=== PATIENT | female | born 1965 | race African-American/Black ===

== ENCOUNTER 2018-06-01 18:08 | Emergency (ER) | payer OTHER ==
[2018-06-01 18:28] VITALS: BP 141/83; PULSE 83; TEMP 98.3; BMI 24.4
--- NOTE | 2018-06-01 19:26 | PDOC ---
History of Present Illness - General Chief Complaint: Cold Symptoms Stated Complaint: NUMBNESS IN RT HAND, COUGHING, FEVER Time Seen by Provider: 06/01/18 18:49 History Source: Patient Exam Limitations: No Limitations - History of Present Illness Initial Comments: 06/01/18 19:32 Came with grandson with similar complaints of congestion, ear crackling, moist cough is nonproductive. Granddaughter was diagnosed with influenza last week and patient states her symptoms have been almost as long. Denies current fever, denies purulent drainage from nose, has a moist cough but is a many year pack history smoker. Has been using [id number] medications for some relief. Also suffers from asthma but has run out of her albuterol nebulizing medications. Did not attempt to speak to private physician. Timing/Duration: reports: constant, intermittent, week Severity: reports: mild Associated Symptoms: reports: cough, headache, nasal congestion, nasal drainage , sore throat (postnasal drainage). denies: wheezing Past History - Travel Traveled outside of the country in the last 30 days: No Close contact w/someone who was outside of country & ill: No - Past Medical History Allergies/Adverse Reactions: Allergies Allergy/AdvReac Type Severity Reaction Status Date / Time No Known Allergies Allergy Verified 06/01/18 18:21 Home Medications: Ambulatory Orders Alprazolam [Xanax] 0.5 mg PO ASDIR 03/28/16 Clonidine HCl [Catapres] 0.2 mg PO DAILY 03/28/16 Famotidine [Pepcid] 20 mg PO DAILY #14 tablet 03/28/16 Metoprolol Tartrate [Lopressor -] 50 mg PO DAILY 03/28/16 Albuterol 0.083% Nebulizer Yaritza [Ventolin 0.083% Nebulizer Soln -] 1 neb NEB Q4H PRN #30 vial 06/01/18 Benzonatate [Tessalon Pearls -] 100 mg PO TID #21 capsule 06/01/18 Anemia: No Asthma: Yes Cancer: No Cardiac Disorders: No CVA: No COPD: No CHF: No Dementia: No Diabetes: No GI Disorders: Yes (REFLUX, BLOOD IN STOOL, PEPTIC ULCER) Disorders: No HTN: Yes Hypercholesterolemia: No Liver Disease: No Seizures: No Thyroid Disease: Yes (hypo) - Surgical History Abdominal Surgery: No Appendectomy: No Cardiac Surgery: No Cholecystectomy: No Lung Surgery: No Neurologic Surgery: No Orthopedic Surgery: No - Suicide/Smoking/Psychosocial Hx Smoking History: Current some day smoker Have you smoked in the past 12 months: Yes Number of Cigarettes Smoked Daily: 10 Information on smoking cessation initiated: No 'Breaking Loose' booklet given: 05/05/13 Hx Alcohol Use: No Drug/Substance Use Hx: No Substance Use Type: None Review of Systems - Review of Systems Able to Perform ROS?: Yes Is the patient limited Upper Sorbian proficient: Yes Constitutional: Yes: Symptoms Reported, See HPI, Malaise HEENTM: Yes: Symptoms Reported, See HPI, Ear Pain, Nose Pain, Nose Congestion Respiratory: Yes: Symptoms reported, See HPI, Cough. No: Wheezing Integumentary: No: Symptoms Reported Neurological: Yes: Symptoms reported, See HPI, Headache (primarily frontal) All Other Systems: Reviewed and Negative *Physical Exam - Vital Signs Last Vital Signs Temp Pulse Resp BP Pulse Ox 98.3 F 83 20 141/83 96 06/01/18 18:26 06/01/18 18:26 06/01/18 18:26 06/01/18 18:26 06/01/18 18:26 - Physical Exam General Appearance: Yes: Nourished, Appropriately Dressed, Mild Distress HEENT: positive: MADDIE, TMs Normal (congested but landmarks easily visualized), Pharyngeal Erythema (with white posterior sinus drainage noted, no swelling exudate noted), Rhinorrhea, Sinus Tenderness Neck: positive: Supple (clear), Lymphadenopathy (R), Lymphadenopathy (L) Respiratory/Chest: positive: Lungs Clear. negative: Decreased Breath Sounds, Crackles, Wheezing Gastrointestinal/Abdominal: positive: Normal Bowel Sounds, Soft. negative: Tender Musculoskeletal: positive: Normal Inspection. negative: Vertebral Tenderness Extremity: positive: Normal Capillary Refill, Normal Inspection Integumentary: positive: Dry, Warm, Pale Neurologic: positive: systems support officer II-XII NML intact, Fully Oriented, Alert, Normal Mood/ Affect, Normal Response, Motor Strength 5/5 Moderate Sedation - Procedure Monitoring Vital Signs: Procedure Monitoring Vital Signs Temperature 98.3 F 06/01/18 18:26 Pulse Rate 83 06/01/18 18:26 Respiratory Rate 20 06/01/18 18:26 Blood Pressure 141/83 06/01/18 18:26 O2 Sat by Pulse Oximetry (%) 96 06/01/18 18:26 Progress Note - Progress Note Progress Note: Upper respiratory infection, probable viral will treat conservatively *DC/Admit/Observation/Transfer Diagnosis at time of Disposition: Upper respiratory infection, viral - Discharge Dispostion Disposition: HOME Condition at time of disposition: Stable Decision to Admit order: No - Prescriptions Prescriptions: Albuterol 0.083% Nebulizer Yaritza [Ventolin 0.083% Nebulizer Soln -] 1 neb NEB Q4H PRN #30 vial PRN Reason: Cough Benzonatate [Tessalon Pearls -] 100 mg PO TID #21 capsule - Referrals - Patient Instructions Printed Discharge Instructions: DI for Viral Upper Respiratory Infection -- Adult Additional Instructions: Rest, drink lots of fluids: Teas, water, soups, Pedialyte Saltwater gargles Steamy showers/seem to face break up mucus Avoid contact with others until fevers and cough resolved Lots of handwashing and good hygiene Continue [id number] medications for symptomatic relief Tylenol or Motrin for fever and pain May use albuterol nebulizers for wheezing and cough May use Tessalon Perles 1 tablet every 8 hours for severe cough Followup with private physician in one to 2 days as needed Return to emergency department for worsened symptoms, fevers, dehydration - Post Discharge Activity Forms/Work/School Notes: Back to Work
== END 2018-06-01 19:36 | disposition home or self-care (01) ==
LOC: JERFT 18:08
DX: J06.9 Acute upper respiratory infection, unspecified (principal); B97.89 Other viral agents as the cause of diseases classified elsewhere
CPT/HCPCS: 99281-25

== ENCOUNTER 2018-06-17 12:52 | Emergency (ER) | payer OTHER ==
[2018-06-17 13:06] VITALS: TEMP 98.7; BMI 23.9
[2018-06-17] MEDS ORDERED: LOSARTAN 50MG/HCTZ 12.5MG 1 TAB (FP) PO ONE (14:21)
[2018-06-17] MEDS ORDERED: cloNIDine HCL 0.1 MG TABLET PO ONE (14:21)
--- NOTE | 2018-06-17 14:31 | PDOC ---
History of Present Illness - History of Present Illness Initial Comments: The patient is a 52 year old female (current smoker- 5 cigarettes per day), with a significant PMH of HTN, asthma, acid reflux, peptic ulcer, and hypothyroidism, who presents to the emergency department today complaining of left ear pain and elevated blood pressure for one day. Patient notes she began experiencing ear pain upon waking up this morning. Although she did not measure her blood pressure, she felt as if it was elevated and thought it was the cause of her ear pain. Patient denies taking daily medications (Losartan and Clonidine) this morning because she thought they would be administered at the ED today. Patient reports having a chronic cough at baseline secondary to her asthma, which she notes is well controlled and only uses her inhaler as needed. 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 The patient denies chest pain, shortness of breath, headache and dizziness. Denies fever, chills, nausea, vomit, diarrhea and constipation. Denies dysuria, frequency, urgency and hematuria. Allergies: NKA Past surgical history: None reported Social history: Current everyday smoker (5 cigarettes per day) PCP: Dr. Benitez Hooper 06/17/18 14:55 <Karishma Lemon - Last Filed: 06/17/18 14:55> <Meeta Camejo - Last Filed: 06/17/18 15:14> - General Chief Complaint: Blood Pressure Problem Stated Complaint: HTN, RT ARM NUMBNESS, LT EAR PAIN Time Seen by Provider: 06/17/18 13:55 Past History <Karishma Lemon - Last Filed: 06/17/18 14:55> - Past Medical History Anemia: No Asthma: Yes Cancer: No Cardiac Disorders: No CVA: No COPD: No CHF: No Dementia: No Diabetes: No GI Disorders: Yes (REFLUX, BLOOD IN STOOL, PEPTIC ULCER) Disorders: No HTN: Yes Hypercholesterolemia: No Liver Disease: No Seizures: No Thyroid Disease: Yes (hypo) - Surgical History Abdominal Surgery: No Appendectomy: No Cardiac Surgery: No Cholecystectomy: No Lung Surgery: No Neurologic Surgery: No Orthopedic Surgery: No - Suicide/Smoking/Psychosocial Hx Smoking History: Current every day smoker Have you smoked in the past 12 months: Yes Number of Cigarettes Smoked Daily: 5 Information on smoking cessation initiated: Yes 'Breaking Loose' booklet given: 05/05/13 Hx Alcohol Use: No Drug/Substance Use Hx: No Substance Use Type: None <Meeta Camejo - Last Filed: 06/17/18 15:14> - Past Medical History Allergies/Adverse Reactions: Allergies Allergy/AdvReac Type Severity Reaction Status Date / Time No Known Allergies Allergy Verified 06/17/18 13:06 Home Medications: Ambulatory Orders Alprazolam [Xanax] 0.5 mg PO ASDIR 03/28/16 Clonidine HCl [Catapres] 0.2 mg PO DAILY 03/28/16 Famotidine [Pepcid] 20 mg PO DAILY #14 tablet 03/28/16 Metoprolol Tartrate [Lopressor -] 50 mg PO DAILY 03/28/16 Albuterol 0.083% Nebulizer Yaritza [Ventolin 0.083% Nebulizer Soln -] 1 neb NEB Q4H PRN #30 vial 06/01/18 Benzonatate [Tessalon Perle -] 100 mg PO TID #21 capsule 06/01/18 Neomycin/Polymyxn/Hc [Cortisporin *Otic Solution*-] 4 drop AU Q6HPO 10 Days #1 bottle 06/17/18 Review of Systems - Review of Systems Comments:: GENERAL/CONSTITUTIONAL: +Elevated blood pressure. No fever or chills. No weakness. HEAD, EYES, EARS, NOSE AND THROAT: +Left ear pain. No change in vision. No ear discharge. No sore throat. CARDIOVASCULAR: No chest pain or shortness of breath. RESPIRATORY: +Chronic cough at baseline secondary to asthma. No wheezing or hemoptysis. GASTROINTESTINAL: No nausea, vomiting, diarrhea or constipation. GENITOURINARY: No dysuria, frequency, or change in urination. MUSCULOSKELETAL: No joint or muscle swelling or pain. No neck or back pain. SKIN: No rash NEUROLOGIC: +Right upper extremity tingling. No headache, vertigo, loss of consciousness, or change in strength. ENDOCRINE: No increased thirst. No abnormal weight change. HEMATOLOGIC/LYMPHATIC: No anemia, easy bleeding, or history of blood clots. ALLERGIC/IMMUNOLOGIC: No hives or skin allergy. 06/17/18 14:55 <Karishma Lemon - Last Filed: 06/17/18 14:55> *Physical Exam - Vital Signs Last Vital Signs Temp Pulse Resp BP Pulse Ox 98.7 F 77 19 183/90 H 100 06/17/18 13:03 06/17/18 13:03 06/17/18 13:03 06/17/18 13:03 06/17/18 13:03 - Physical Exam Comments: GENERAL: Awake, alert, and fully oriented, in no acute distress HEAD: No signs of trauma EYES: PERRLA, EOMI, sclera anicteric, conjunctiva clear ENT: +Left ear pain with moving auricle. +Mild external ear erythema. +Canal erythema. Left and right tympanic membrane clear. Hearing grossly normal, nares patent, oropharynx clear without exudates. Moist mucosa NECK: Normal ROM, supple, no lymphadenopathy, JVD, or masses LUNGS: +Expiratory wheezing bilaterally. +Left lung crackles. Breath sounds equal, clear to auscultation bilaterally. HEART: Regular rate and rhythm, normal S1 and S2, no murmurs, rubs or gallops ABDOMEN: Soft, nontender, normoactive bowel sounds. No guarding, no rebound. No masses EXTREMITIES: Normal range of motion, no edema. No clubbing or cyanosis. No cords, erythema, or tenderness NEUROLOGICAL: Cranial nerves II through XII grossly intact. Normal speech, normal gait SKIN: Warm, Dry, normal turgor, no rashes or lesions noted. 06/17/18 14:56 <Karishma Lemon - Last Filed: 06/17/18 14:55> - Vital Signs Last Vital Signs Temp Pulse Resp BP Pulse Ox 98.7 F 77 19 183/90 H 100 06/17/18 13:03 06/17/18 13:03 06/17/18 13:03 06/17/18 13:03 06/17/18 13:03 <Meeta Camejo - Last Filed: 06/17/18 15:14> Moderate Sedation - Procedure Monitoring Vital Signs: Procedure Monitoring Vital Signs Temperature 98.7 F 06/17/18 13:03 Pulse Rate 77 06/17/18 13:03 Respiratory Rate 19 06/17/18 13:03 Blood Pressure 183/90 H 06/17/18 13:03 O2 Sat by Pulse Oximetry (%) 100 06/17/18 13:03 <Karisham Lemon - Last Filed: 06/17/18 14:55> - Procedure Monitoring Vital Signs: Procedure Monitoring Vital Signs Temperature 98.7 F 06/17/18 13:03 Pulse Rate 77 06/17/18 13:03 Respiratory Rate 19 06/17/18 13:03 Blood Pressure 183/90 H 06/17/18 13:03 O2 Sat by Pulse Oximetry (%) 100 06/17/18 13:03 <Meeta Camejo - Last Filed: 06/17/18 15:14> Heart Score/ECG Review #1 General ECG Interpretation: Sinus Rhythm, Normal Rate (70), Normal Intervals, No acute ischemic changes <Meeta Camejo - Last Filed: 06/17/18 15:14> ED Treatment Course - LABORATORY CBC & Chemistry Diagram: 06/17/18 14:49 06/17/18 14:49 <Karishma Lemon - Last Filed: 06/17/18 14:55> - LABORATORY CBC & Chemistry Diagram: 06/17/18 14:49 06/17/18 14:49 - RADIOLOGY Radiology Studies Ordered: Category Date Time Status CHEST PA & LAT [RAD] Stat Radiology 06/17/18 14:24 Ordered <NellMeeta - Last Filed: 06/17/18 15:14> Medical Decision Making - Medical Decision Making 06/17/18 14:24 52 yo F here with h/o tobacco use, left ear pain. states has been having ear pain since she woke up . was worried it was her bp. so did not take her meds bc thought they would give her her meds here. denbryon cp no sob . chronic cough. no f/c also has intermittent right arm tingling. for last week. no neck or back pain. does work a lot with her grandson who is autistic and is teaching him sign language. no leg swelling. 06/17/18 14:26 on exam pt left ear with pain moving auricle. ext ear mild erythema. canal erythematous. TM clear. right tm clear. cardiac exam rrr no mrg . lungs with exp wheezes bilat, left lung with cracles. plan cxr r/o pna. ekg lab r/o end organ damage. will treat for otitis externa wtih corticosporin otic. given home bp meds. <Meeta Camejo - Last Filed: 06/17/18 15:14> *DC/Admit/Observation/Transfer - Attestations Scribe Attestion: Documentation prepared by KIRILL Law, acting as chief medical director for Meeta Camejo MD. 06/17/18 14:56 <Karishma Lemon - Last Filed: 06/17/18 14:55> - Discharge Dispostion Decision to Admit order: No <Meeta Camejo - Last Filed: 06/17/18 15:14> Diagnosis at time of Disposition: Hypertension, Otitis externa - Discharge Dispostion Disposition: HOME - Prescriptions Prescriptions: Neomycin/Polymyxn/Hc [Cortisporin *Otic Solution*-] 4 drop AU Q6HPO 10 Days #1 bottle - Referrals Referrals: Benitez Hooper PA [Primary Care Provider] - - Patient Instructions Printed Discharge Instructions: Otitis Externa, How to Monitor Your Blood Pressure at Home Additional Instructions: your have infection in your left ear. you should use corticosporin otic drops 5 drops in the left ear every 6 hrs for 10 days. you should continue to take your blood pressure medication. return for any chest pain, shortness of breath or any fevers. you need to have your blood pressure repeated in 3 days with your primary doctor. call to schedule an appointment. you can also follow up with an ear nose and throat doctor. see referral for phone number. return for any problems or concerns. you need to quit smoking. discuss with you primary provider for options.
[2018-06-17] MEDS ORDERED: LOSARTAN POTASSIUM 50 MG TABLET (FP) ONE (14:43)
[2018-06-17] MEDS ORDERED: HYDROCHLOROTHIAZIDE 25 MG TABLET (FP) ONE (14:43)
[2018-06-17] MEDS ORDERED: cloNIDine HCL 0.1 MG TABLET ONE (14:43)
[2018-06-17 14:58] VITALS: BP 148/86; PULSE 72
[2018-06-17 15:02] LABS: BASO % 1.1 % (0-2.0); EOS % 1.8 % (0-4.5); HEMATOCRIT 38.7 % (32.4-45.2); HEMOGLOBIN 13.3 GM/dL (10.7-15.3); LYMPH % 52.9 % (8-40); MCH 32.4 pg (25.7-33.7); MCHC 34.5 g/dl (32.0-36.0); MEAN CELL VOLUME 93.9 fl (80-96); MEAN PLT VOLUME 8.9 fl (7.5-11.1); MONO % 7.8 % (3.8-10.2); NEUT % 36.4 % (42.8-82.8); PLATELET COUNT 220 K/MM3 (134-434); RBC 4.12 M/mm3 (3.60-5.2); WHITE BLOOD COUNT 7.7 K/mm3 (4.0-10.0)
[2018-06-17 15:33] LABS: ALBUMIN 3.9 g/dl (3.4-5.0); ALK PHOS 99 U/L (45-117); ANION GAP 4 MMOL/L (8-16); BILIRUBIN,TOTAL 0.3 mg/dL (0.2-1); BLOOD UREA NITROGEN 8 mg/dL (7-18); CALCIUM 8.9 mg/dL (8.5-10.1); CHLORIDE 104 mmol/L (98-107); CO2 30 mmol/L (21-32); CREATININE 0.6 mg/dL (0.55-1.3); GLUCOSE,RANDOM 82 mg/dL (74-106); POTASSIUM 4.2 mmol/L (3.5-5.1); SGOT/AST 17 U/L (15-37); SGPT/ALT 22 U/L (13-61); SODIUM 138 mmol/L (136-145); TOT PROT 7.3 g/dl (6.4-8.2)
--- NOTE | 2018-06-17 15:49 | EKG ---
Test Reason : Blood Pressure : / mmHG Vent. Rate : 070 BPM Atrial Rate : 070 BPM P-R Int : 168 ms QRS Dur : 084 ms QT Int : 408 ms P-R-T Axes : 043 059 047 degrees QTc Int : 440 ms NORMAL SINUS RHYTHM NORMAL ECG WHEN COMPARED WITH ECG OF 28-MAR-2016 12:50, NO SIGNIFICANT CHANGE WAS FOUND Confirmed by ANNIA HAYWOOD MD ([id number]) on 06/17/2018 3:49:20 PM Referred By: Confirmed By:ANNIA HAYWOOD MD
[2018-06-17] MEDS ORDERED: NEOMYCIN/POLYMYXN/HC OTIC SOLUTION 10 ML BOTTLE AU SCH (18:00)
== END 2018-06-17 15:07 | disposition home or self-care (01) ==
LOC: JER 12:52 → SUPCPDRO 12:52 → JER 15:07
DX: I10 Essential (primary) hypertension (principal); H60.502 Unspecified acute noninfective otitis externa, left ear; J45.909 Unspecified asthma, uncomplicated; K21.9 Gastro-esophageal reflux disease without esophagitis; E03.9 Hypothyroidism, unspecified; F17.210 Nicotine dependence, cigarettes, uncomplicated
CPT/HCPCS: 36415; 71046-TC-FY; 80053; 84484; 85025; 93005; 93010; 99283-25; J0735

== ENCOUNTER 2020-09-27 11:37 | Inpatient (IN) | payer OTHER ==
[2020-09-27 12:40] VITALS: BMI 22.3
[2020-09-27] MEDS ORDERED: ALBUTEROL SO4 HFA INHALER IH PRN (14:16)
[2020-09-27] MEDS ORDERED: MAG HYDROX/AL HYDROX/SIMETH 30 ML UNIT-DOSE CUP PO PRN (14:18)
[2020-09-27] MEDS ORDERED: ONDANSETRON *ODT* 4 MG TABLET SL PRN (14:18)
[2020-09-27] MEDS ORDERED: cloNIDine HCL 0.1 MG TABLET PO PRN (14:18)
[2020-09-27] MEDS ORDERED: METHADONE HCL 10 MG TABLET (FOR DETOX USE ONLY) PO ONE (14:18)
[2020-09-27] MEDS ORDERED: NICOTINE POLACRILEX 2 MG GUM BUC PRN (14:18)
[2020-09-27] MEDS ORDERED: BISMUTH SUBSALICYLATE 262 MG/15 ML BTL PO PRN (14:18)
[2020-09-27] MEDS ORDERED: ACETAMINOPHEN 325 MG TABLET (FP) PO PRN (14:18)
[2020-09-27] MEDS ORDERED: MENTHOL/PHENOL 1 EACH UD MM PRN (14:18)
[2020-09-27] MEDS ORDERED: MAGNESIUM CITRATE 300 ML BOTTLE PO PRN (14:18)
[2020-09-27] MEDS ORDERED: PATIENT'S OWN MEDICATION (NON-FORMULARY) (Omeprazole Magnesium [Prilosec Otc] 20 MG Tablet PO SCH (14:30)
[2020-09-27] MEDS ORDERED: METHIMAZOLE 10 MG TABLET PO SCH (14:30)
[2020-09-27] MEDS: ATORVASTATIN CA 20 MG TABLET (FP) PO SCH (15:32)
[2020-09-27] MEDS: PANTOPRAZOLE 20 MG TABLET PO SCH (15:32)
[2020-09-27] MEDS: amLODIPine BESYLATE 5 MG TABLET (FP) PO SCH (15:32)
[2020-09-27] MEDS: PRENATAL VITAMINS W/ FOLIC ACID TABLET (FP) PO SCH (15:32)
[2020-09-27] MEDS: NICOTINE 14 MG/24 HOURS TOPICAL PATCH TD SCH (15:34)
[2020-09-27 17:26] LABS: HIV INTERPRETATION NEGATIVE (NEGATIVE)
[2020-09-27] MEDS: diazePAM 5 MG TABLET PO SCH ×2 (18:17→22:23)
[2020-09-27] MEDS: hydrOXYzine PAMOATE 25 MG CAPSULE (FP) PO SCH ×2 (18:17→22:23)
[2020-09-27] MEDS: IBUPROFEN 400 MG TABLET (FP) PO PRN (19:51)
[2020-09-27] MEDS: THIAMINE HCL 100 MG TABLET (FP) PO SCH (22:23)
[2020-09-27] MEDS: MELATONIN 5 MG TABLETS PO SCH (22:24)
[2020-09-27] MEDS: METHOCARBAMOL 500 MG TABLET PO PRN (22:26)
[2020-09-28] MEDS: diazePAM 5 MG TABLET PO SCH ×4 (06:11→22:25)
[2020-09-28] MEDS: hydrOXYzine PAMOATE 25 MG CAPSULE (FP) PO SCH ×5 (06:12→22:25)
[2020-09-28] MEDS: IBUPROFEN 400 MG TABLET (FP) PO PRN ×2 (07:06→13:47)
[2020-09-28] MEDS ORDERED: METHADONE HCL 10 MG TABLET (FOR DETOX USE ONLY) ONE (09:45)
[2020-09-28] MEDS ORDERED: METHADONE HCL 5 MG TABLET (FOR DETOX USE ONLY) ONE (09:45)
[2020-09-28 09:54] LABS: HEMATOCRIT 43.7 % (32.4-45.2); HEMOGLOBIN 14.5 GM/dL (10.7-15.3); MCH 30.3 pg (25.7-33.7); MCHC 33.2 g/dl (32.0-36.0); MEAN CELL VOLUME 91.3 fl (80-96); MEAN PLT VOLUME 9.2 fl (7.5-11.1); PLATELET COUNT 262 10^3/uL (134-434); RBC 4.79 M/mm3 (3.60-5.2)
[2020-09-28] MEDS ORDERED: METHADONE (DETOX) 20 MG, METHADONE (DETOX) 5 MG PO ONE (10:00)
[2020-09-28 10:11] LABS: ALBUMIN 4.1 g/dl (3.4-5.0); BLOOD UREA NITROGEN 21.1 mg/dL (7-18)
[2020-09-28 10:13] LABS: CALCIUM 9.2 mg/dL (8.5-10.1); TOT PROT 8.1 g/dl (6.4-8.2)
[2020-09-28 10:19] LABS: BILIRUBIN,TOTAL 0.6 mg/dL (0.2-1); CREATININE 1.2 mg/dL (0.55-1.3)
[2020-09-28] MEDS: ASPIRIN 81 MG CHEWABLE TABLETS PO SCH (10:56)
[2020-09-28] MEDS: PRENATAL VITAMINS W/ FOLIC ACID TABLET (FP) PO SCH (10:56)
[2020-09-28] MEDS: ATORVASTATIN CA 20 MG TABLET (FP) PO SCH (10:57)
[2020-09-28] MEDS: amLODIPine BESYLATE 5 MG TABLET (FP) PO SCH (10:57)
[2020-09-28] MEDS: NICOTINE 14 MG/24 HOURS TOPICAL PATCH TD SCH (10:57)
[2020-09-28] MEDS: METHIMAZOLE 5 MG TABLET PO SCH (10:57)
[2020-09-28] MEDS: PANTOPRAZOLE 20 MG TABLET PO SCH (11:14)
[2020-09-28] MEDS: MAGNESIUM HYDROX 2400MG/30ML ORAL SUSPENSION 30 ML CUP PO PRN (11:15)
[2020-09-28] MEDS: diazePAM 5 MG TABLET PO PRN (13:50)
[2020-09-28] MEDS: METHOCARBAMOL 500 MG TABLET PO PRN (13:50)
[2020-09-28] MEDS: MELATONIN 5 MG TABLETS PO SCH (22:25)
[2020-09-28] MEDS: THIAMINE HCL 100 MG TABLET (FP) PO SCH (22:25)
[2020-09-29] MEDS: IBUPROFEN 400 MG TABLET (FP) PO PRN ×2 (02:10→18:01)
[2020-09-29] MEDS: diazePAM 5 MG TABLET PO PRN ×3 (02:11→18:01)
[2020-09-29] MEDS: METHOCARBAMOL 500 MG TABLET PO PRN ×2 (02:11→13:14)
[2020-09-29] MEDS: hydrOXYzine PAMOATE 25 MG CAPSULE (FP) PO SCH ×5 (06:20→22:04)
[2020-09-29] MEDS: diazePAM 5 MG TABLET PO SCH ×3 (06:20→22:04)
[2020-09-29] MEDS ORDERED: METHADONE HCL 10 MG TABLET (FOR DETOX USE ONLY) PO ONE (10:00)
[2020-09-29] MEDS: PRENATAL VITAMINS W/ FOLIC ACID TABLET (FP) PO SCH (10:17)
[2020-09-29] MEDS: NICOTINE 14 MG/24 HOURS TOPICAL PATCH TD SCH (10:18)
[2020-09-29] MEDS: amLODIPine BESYLATE 5 MG TABLET (FP) PO SCH (10:18)
[2020-09-29] MEDS: PANTOPRAZOLE 20 MG TABLET PO SCH (10:18)
[2020-09-29] MEDS: ATORVASTATIN CA 20 MG TABLET (FP) PO SCH (10:18)
[2020-09-29] MEDS: METHIMAZOLE 5 MG TABLET PO SCH (10:18)
[2020-09-29] MEDS: ASPIRIN 81 MG CHEWABLE TABLETS PO SCH (10:18)
[2020-09-29] MEDS: ACETAMINOPHEN 325 MG TABLET (FP) PO PRN (19:51)
[2020-09-29] MEDS: THIAMINE HCL 100 MG TABLET (FP) PO SCH (22:04)
[2020-09-29] MEDS: MELATONIN 5 MG TABLETS PO SCH (22:04)
[2020-09-30] MEDS: IBUPROFEN 400 MG TABLET (FP) PO PRN (05:17)
[2020-09-30] MEDS: hydrOXYzine PAMOATE 25 MG CAPSULE (FP) PO SCH ×5 (05:17→22:07)
[2020-09-30] MEDS: METHOCARBAMOL 500 MG TABLET PO PRN ×3 (05:17→22:24)
[2020-09-30] MEDS: diazePAM 5 MG TABLET PO SCH ×2 (05:18→18:05)
[2020-09-30] MEDS ORDERED: METHADONE HCL 10 MG TABLET (FOR DETOX USE ONLY) ONE (09:04)
[2020-09-30] MEDS ORDERED: METHADONE HCL 5 MG TABLET (FOR DETOX USE ONLY) ONE (09:04)
[2020-09-30] MEDS: ATORVASTATIN CA 20 MG TABLET (FP) PO SCH (09:48)
[2020-09-30] MEDS: amLODIPine BESYLATE 5 MG TABLET (FP) PO SCH (09:48)
[2020-09-30] MEDS: PANTOPRAZOLE 20 MG TABLET PO SCH (09:48)
[2020-09-30] MEDS: METHIMAZOLE 5 MG TABLET PO SCH (09:49)
[2020-09-30] MEDS: PRENATAL VITAMINS W/ FOLIC ACID TABLET (FP) PO SCH (09:51)
[2020-09-30] MEDS: ASPIRIN 81 MG CHEWABLE TABLETS PO SCH (09:53)
[2020-09-30] MEDS: ACETAMINOPHEN 325 MG TABLET (FP) PO PRN (09:53)
[2020-09-30] MEDS: NICOTINE 14 MG/24 HOURS TOPICAL PATCH TD SCH (09:53)
[2020-09-30] MEDS: MAGNESIUM HYDROX 2400MG/30ML ORAL SUSPENSION 30 ML CUP PO PRN (09:54)
[2020-09-30] MEDS: diazePAM 5 MG TABLET PO PRN (09:55)
[2020-09-30] MEDS ORDERED: METHADONE (DETOX) 10 MG, METHADONE (DETOX) 5 MG PO ONE (10:00)
[2020-09-30] MEDS: GABAPENTIN 300 MG CAPSULE PO SCH ×2 (11:04→22:07)
[2020-09-30] MEDS: MELATONIN 5 MG TABLETS PO SCH (22:07)
[2020-09-30] MEDS: SENNOSIDES 8.6MG TABLET (FP) PO SCH (22:07)
[2020-09-30] MEDS: THIAMINE HCL 100 MG TABLET (FP) PO SCH (22:07)
[2020-10-01] MEDS: ACETAMINOPHEN 325 MG TABLET (FP) PO PRN (03:20)
[2020-10-01] MEDS: IBUPROFEN 400 MG TABLET (FP) PO PRN (05:20)
[2020-10-01] MEDS: METHOCARBAMOL 500 MG TABLET PO PRN ×3 (05:21→22:04)
[2020-10-01] MEDS ORDERED: diazePAM 5 MG TABLET PO ONE (06:00)
[2020-10-01] MEDS: hydrOXYzine PAMOATE 25 MG CAPSULE (FP) PO SCH ×5 (06:24→22:02)
[2020-10-01] MEDS ORDERED: METHADONE HCL 10 MG TABLET (FOR DETOX USE ONLY) PO ONE (10:00)
[2020-10-01] MEDS: METHIMAZOLE 5 MG TABLET PO SCH (10:20)
[2020-10-01] MEDS: PANTOPRAZOLE 20 MG TABLET PO SCH (10:21)
[2020-10-01] MEDS: amLODIPine BESYLATE 5 MG TABLET (FP) PO SCH (10:21)
[2020-10-01] MEDS: GABAPENTIN 300 MG CAPSULE PO SCH ×2 (10:21→22:02)
[2020-10-01] MEDS: ASPIRIN 81 MG CHEWABLE TABLETS PO SCH (10:21)
[2020-10-01] MEDS: PRENATAL VITAMINS W/ FOLIC ACID TABLET (FP) PO SCH (10:21)
[2020-10-01] MEDS: ATORVASTATIN CA 20 MG TABLET (FP) PO SCH (10:22)
[2020-10-01] MEDS: NICOTINE 14 MG/24 HOURS TOPICAL PATCH TD SCH (10:22)
[2020-10-01] MEDS: METHYL SALICYLATE/MENTHOL OINT 30 GM TUBE TP SCH (17:42)
[2020-10-01] MEDS: MAGNESIUM HYDROX 2400MG/30ML ORAL SUSPENSION 30 ML CUP PO PRN (17:45)
[2020-10-01 19:54] LABS: BASO % 0.4 % (0-2.0); HEMATOCRIT 39.9 % (32.4-45.2); HEMOGLOBIN 12.9 GM/dL (10.7-15.3); LYMPH % 65.5 % (8-40); MCH 29.7 pg (25.7-33.7); MCHC 32.3 g/dl (32.0-36.0); MEAN CELL VOLUME 91.9 fl (80-96); MEAN PLT VOLUME 10.3 fl (7.5-11.1); MONO % 6.6 % (3.8-10.2); NEUT % 24.5 % (42.8-82.8); PLATELET COUNT 238 10^3/uL (134-434); RBC 4.34 M/mm3 (3.60-5.2); RDW 13.8 % (11.6-15.6); WHITE BLOOD COUNT 6.5 K/mm3 (4.0-10.0)
[2020-10-01 20:09] LABS: CALCIUM 8.7 mg/dL (8.5-10.1)
[2020-10-01 20:10] LABS: BLOOD UREA NITROGEN 14.6 mg/dL (7-18)
[2020-10-01 20:13] LABS: CREATININE 0.6 mg/dL (0.55-1.3)
[2020-10-01 21:13] LABS: ANISOCYTOSIS 0; MACROCYTOSIS 0; PLATELET ESTIMATE NORMAL
[2020-10-01] MEDS: THIAMINE HCL 100 MG TABLET (FP) PO SCH (22:02)
[2020-10-01] MEDS: MELATONIN 5 MG TABLETS PO SCH (22:02)
[2020-10-01] MEDS: SENNOSIDES 8.6MG TABLET (FP) PO SCH (22:03)
[2020-10-02] MEDS: hydrOXYzine PAMOATE 25 MG CAPSULE (FP) PO SCH ×2 (05:39→10:12)
[2020-10-02] MEDS ORDERED: METHADONE HCL 5 MG TABLET (FOR DETOX USE ONLY) PO ONE (06:00)
[2020-10-02] MEDS: ASPIRIN 81 MG CHEWABLE TABLETS PO SCH (10:12)
[2020-10-02] MEDS: GABAPENTIN 300 MG CAPSULE PO SCH (10:12)
[2020-10-02] MEDS: PRENATAL VITAMINS W/ FOLIC ACID TABLET (FP) PO SCH (10:12)
[2020-10-02] MEDS: amLODIPine BESYLATE 5 MG TABLET (FP) PO SCH (10:12)
[2020-10-02] MEDS: PANTOPRAZOLE 20 MG TABLET PO SCH (10:13)
[2020-10-02] MEDS: METHYL SALICYLATE/MENTHOL OINT 30 GM TUBE TP SCH (10:13)
[2020-10-02] MEDS: NICOTINE 14 MG/24 HOURS TOPICAL PATCH TD SCH (10:13)
[2020-10-02] MEDS: METHOCARBAMOL 500 MG TABLET PO PRN (10:13)
[2020-10-02] MEDS: ATORVASTATIN CA 20 MG TABLET (FP) PO SCH (10:13)
[2020-10-02] MEDS: METHIMAZOLE 5 MG TABLET PO SCH (10:14)
[2020-10-02 13:44] VITALS: BP 118/67; PULSE 98; TEMP 96.8
== END 2020-10-02 13:55 | disposition other institution (70) | DRG 773 ==
LOC: YASAS 11:37 → MERGE 13:09 → Y3N 13:09
PROVIDERS: ADMIT Allergy & Immunology; ATTEND Allergy & Immunology
PROC: HZ2ZZZZ Detoxification Services for Substance Abuse Treatment (ICD-10-PCS; principal; 2020-09-27)
DX: F11.23 Opioid dependence with withdrawal (principal); F12.20 Cannabis dependence, uncomplicated; F17.210 Nicotine dependence, cigarettes, uncomplicated; F19.24 Other psychoactive substance dependence with psychoactive substance-induced mood disorder; F41.9 Anxiety disorder, unspecified; I10 Essential (primary) hypertension; J45.909 Unspecified asthma, uncomplicated; E05.90 Thyrotoxicosis, unspecified without thyrotoxic crisis or storm; I25.2 Old myocardial infarction; D72.829 Elevated white blood cell count, unspecified; N17.9 Acute kidney failure, unspecified; R00.0 Tachycardia, unspecified
CPT/HCPCS: 36415; 80048; 80053; 81025; 85025; 85027; 86780; 87389; 93005; 93010; C9803; J0735; U0003; U0005

== ENCOUNTER 2020-10-02 13:59 | Inpatient (IN) | payer OTHER ==
[2020-10-02] MEDS ORDERED: LOPERAMIDE HCL 2 MG CAPSULE PO PRN (14:05)
[2020-10-02] MEDS ORDERED: guaiFENesin 200 MG/10 ML 10 ML UNIT-DOSE CUPS PO PRN (14:05)
[2020-10-02] MEDS ORDERED: ALBUTEROL SO4 0.083% IH SOL 2.5 MG/3 ML VIAL.NEB. NEB PRN (14:05)
[2020-10-02] MEDS ORDERED: P-EPHED 60MG/TRIPROLIDI 2.5MG TABLET PO PRN (14:05)
[2020-10-02] MEDS ORDERED: MAGNESIUM CITRATE 300 ML BOTTLE PO PRN (14:05)
[2020-10-02] MEDS ORDERED: MENTHOL/PHENOL 1 EACH UD MM PRN (14:05)
[2020-10-02] MEDS ORDERED: NICOTINE POLACRILEX 2 MG GUM BUC PRN (14:05)
[2020-10-02] MEDS ORDERED: CHOLECALCIFEROL (VIT D3) 5000 UNITS (125 MCG) CAP PO SCH (14:15)
[2020-10-02] MEDS: hydrOXYzine PAMOATE 25 MG CAPSULE (FP) PO SCH ×2 (17:29→21:07)
[2020-10-02] MEDS: THIAMINE HCL 100 MG TABLET (FP) PO SCH (21:06)
[2020-10-02] MEDS: METHYL SALICYLATE/MENTHOL OINT 30 GM TUBE TP SCH (21:07)
[2020-10-02] MEDS: GABAPENTIN 300 MG CAPSULE PO SCH (21:08)
[2020-10-02] MEDS ORDERED: MELATONIN 5 MG TABLETS PO SCH (22:00)
[2020-10-03] MEDS: hydrOXYzine PAMOATE 25 MG CAPSULE (FP) PO SCH ×5 (06:40→21:27)
[2020-10-03] MEDS: ASPIRIN 81 MG CHEWABLE TABLETS PO SCH (10:22)
[2020-10-03] MEDS: ATORVASTATIN CA 20 MG TABLET (FP) PO SCH (10:22)
[2020-10-03] MEDS: MONTELUKAST NA 10 MG TABLET PO SCH (10:22)
[2020-10-03] MEDS: PRENATAL VITAMINS W/ FOLIC ACID TABLET (FP) PO SCH (10:22)
[2020-10-03] MEDS: CYCLOBENZAPRINE HCL 10 MG TABLET (FP) PO SCH (10:22)
[2020-10-03] MEDS: amLODIPine BESYLATE 10 MG TABLET (FP) PO SCH (10:22)
[2020-10-03] MEDS: METHIMAZOLE 5 MG TABLET PO SCH (10:23)
[2020-10-03] MEDS: GABAPENTIN 300 MG CAPSULE PO SCH ×2 (10:23→21:27)
[2020-10-03] MEDS: NICOTINE 7 MG/24 HOURS TOPICAL PATCH TD SCH (10:23)
[2020-10-03] MEDS ORDERED: hydrOXYzine PAMOATE 50 MG CAPSULE (FP) PO SCH (10:33)
[2020-10-03] MEDS ORDERED: SUVOREXANT 5 MG TABLET PO PRN (10:34)
[2020-10-03] MEDS: METHYL SALICYLATE/MENTHOL OINT 30 GM TUBE TP SCH ×2 (10:39→21:28)
[2020-10-03] MEDS ORDERED: busPIRone HCL 5 MG TABLET PO SCH (10:45)
[2020-10-03] MEDS: IBUPROFEN 400 MG TABLET (FP) PO PRN (15:06)
[2020-10-03] MEDS: THIAMINE HCL 100 MG TABLET (FP) PO SCH (21:27)
[2020-10-03] MEDS: OLANZapine 10 MG TABLET PO SCH (21:28)
[2020-10-03] MEDS: traZODone HCL 100 MG TABLET (FP) PO SCH (21:29)
[2020-10-04] MEDS: hydrOXYzine PAMOATE 25 MG CAPSULE (FP) PO SCH ×6 (07:05→21:42)
[2020-10-04] MEDS: amLODIPine BESYLATE 10 MG TABLET (FP) PO SCH (10:08)
[2020-10-04] MEDS: ATORVASTATIN CA 20 MG TABLET (FP) PO SCH (10:08)
[2020-10-04] MEDS: PRENATAL VITAMINS W/ FOLIC ACID TABLET (FP) PO SCH (10:08)
[2020-10-04] MEDS: GABAPENTIN 300 MG CAPSULE PO SCH ×2 (10:08→21:40)
[2020-10-04] MEDS: NICOTINE 7 MG/24 HOURS TOPICAL PATCH TD SCH (10:08)
[2020-10-04] MEDS: MONTELUKAST NA 10 MG TABLET PO SCH (10:08)
[2020-10-04] MEDS: ASPIRIN 81 MG CHEWABLE TABLETS PO SCH (10:08)
[2020-10-04] MEDS: CYCLOBENZAPRINE HCL 10 MG TABLET (FP) PO SCH (10:08)
[2020-10-04] MEDS: METHIMAZOLE 5 MG TABLET PO SCH (10:09)
[2020-10-04] MEDS: METHYL SALICYLATE/MENTHOL OINT 30 GM TUBE TP SCH ×2 (10:20→21:43)
[2020-10-04] MEDS: MAGNESIUM HYDROX 2400MG/30ML ORAL SUSPENSION 30 ML CUP PO PRN (14:05)
[2020-10-04] MEDS: ALBUTEROL SO4 HFA INHALER IH PRN (18:45)
[2020-10-04] MEDS: OLANZapine 10 MG TABLET PO SCH (21:41)
[2020-10-04] MEDS: traZODone HCL 100 MG TABLET (FP) PO SCH (21:42)
[2020-10-04] MEDS: THIAMINE HCL 100 MG TABLET (FP) PO SCH (21:42)
[2020-10-05] MEDS: hydrOXYzine PAMOATE 25 MG CAPSULE (FP) PO SCH ×5 (06:34→21:08)
[2020-10-05] MEDS: IBUPROFEN 400 MG TABLET (FP) PO PRN (08:47)
[2020-10-05] MEDS: PRENATAL VITAMINS W/ FOLIC ACID TABLET (FP) PO SCH (10:19)
[2020-10-05] MEDS: ATORVASTATIN CA 20 MG TABLET (FP) PO SCH (10:19)
[2020-10-05] MEDS: GABAPENTIN 300 MG CAPSULE PO SCH ×2 (10:19→21:08)
[2020-10-05] MEDS: METHIMAZOLE 5 MG TABLET PO SCH (10:20)
[2020-10-05] MEDS: MONTELUKAST NA 10 MG TABLET PO SCH (10:20)
[2020-10-05] MEDS: ASPIRIN 81 MG CHEWABLE TABLETS PO SCH (10:20)
[2020-10-05] MEDS: METHYL SALICYLATE/MENTHOL OINT 30 GM TUBE TP SCH ×2 (10:21→21:09)
[2020-10-05] MEDS: amLODIPine BESYLATE 10 MG TABLET (FP) PO SCH (10:21)
[2020-10-05] MEDS: NICOTINE 7 MG/24 HOURS TOPICAL PATCH TD SCH (10:21)
[2020-10-05] MEDS: CYCLOBENZAPRINE HCL 10 MG TABLET (FP) PO SCH (10:21)
[2020-10-05] MEDS: ALBUTEROL SO4 HFA INHALER IH PRN (10:25)
[2020-10-05] MEDS: OMEGA-3 ACID ETHYL ESTERS (FATTY-ACIDS) 1 GM CAPSULE (FP) PO SCH ×2 (13:41→21:08)
[2020-10-05] MEDS: OLANZapine 10 MG TABLET PO SCH (21:08)
[2020-10-05] MEDS: THIAMINE HCL 100 MG TABLET (FP) PO SCH (21:08)
[2020-10-05] MEDS: traZODone HCL 100 MG TABLET (FP) PO SCH (21:08)
[2020-10-06] MEDS: hydrOXYzine PAMOATE 25 MG CAPSULE (FP) PO SCH ×5 (06:37→21:47)
[2020-10-06] MEDS: PRENATAL VITAMINS W/ FOLIC ACID TABLET (FP) PO SCH (10:29)
[2020-10-06] MEDS: METHIMAZOLE 5 MG TABLET PO SCH (10:30)
[2020-10-06] MEDS: GABAPENTIN 300 MG CAPSULE PO SCH ×2 (10:30→21:47)
[2020-10-06] MEDS: CYCLOBENZAPRINE HCL 10 MG TABLET (FP) PO SCH (10:30)
[2020-10-06] MEDS: NICOTINE 7 MG/24 HOURS TOPICAL PATCH TD SCH (10:30)
[2020-10-06] MEDS: ASPIRIN 81 MG CHEWABLE TABLETS PO SCH (10:30)
[2020-10-06] MEDS: OMEGA-3 ACID ETHYL ESTERS (FATTY-ACIDS) 1 GM CAPSULE (FP) PO SCH ×2 (10:30→21:46)
[2020-10-06] MEDS: ATORVASTATIN CA 20 MG TABLET (FP) PO SCH (10:30)
[2020-10-06] MEDS: MONTELUKAST NA 10 MG TABLET PO SCH (10:31)
[2020-10-06] MEDS: amLODIPine BESYLATE 10 MG TABLET (FP) PO SCH (10:32)
[2020-10-06] MEDS: METHYL SALICYLATE/MENTHOL OINT 30 GM TUBE TP SCH ×2 (10:34→23:43)
[2020-10-06] MEDS: IBUPROFEN 400 MG TABLET (FP) PO PRN (13:56)
[2020-10-06] MEDS: ACETAMINOPHEN 325 MG TABLET (FP) PO PRN (17:04)
[2020-10-06] MEDS: OLANZapine 10 MG TABLET PO SCH (21:46)
[2020-10-06] MEDS: traZODone HCL 100 MG TABLET (FP) PO SCH (21:47)
[2020-10-06] MEDS: THIAMINE HCL 100 MG TABLET (FP) PO SCH (23:43)
[2020-10-07] MEDS: hydrOXYzine PAMOATE 25 MG CAPSULE (FP) PO SCH ×5 (06:22→21:25)
[2020-10-07] MEDS: IBUPROFEN 400 MG TABLET (FP) PO PRN (06:23)
[2020-10-07] MEDS: ASPIRIN 81 MG CHEWABLE TABLETS PO SCH (10:09)
[2020-10-07] MEDS: ATORVASTATIN CA 20 MG TABLET (FP) PO SCH (10:10)
[2020-10-07] MEDS: CYCLOBENZAPRINE HCL 10 MG TABLET (FP) PO SCH (10:10)
[2020-10-07] MEDS: GABAPENTIN 300 MG CAPSULE PO SCH ×2 (10:10→21:25)
[2020-10-07] MEDS: METHYL SALICYLATE/MENTHOL OINT 30 GM TUBE TP SCH ×2 (10:11→21:26)
[2020-10-07] MEDS: OMEGA-3 ACID ETHYL ESTERS (FATTY-ACIDS) 1 GM CAPSULE (FP) PO SCH ×2 (10:12→21:25)
[2020-10-07] MEDS: amLODIPine BESYLATE 10 MG TABLET (FP) PO SCH (10:13)
[2020-10-07] MEDS: NICOTINE 7 MG/24 HOURS TOPICAL PATCH TD SCH (10:13)
[2020-10-07] MEDS: PRENATAL VITAMINS W/ FOLIC ACID TABLET (FP) PO SCH (10:13)
[2020-10-07] MEDS: METHIMAZOLE 5 MG TABLET PO SCH (10:14)
[2020-10-07] MEDS: ALBUTEROL SO4 HFA INHALER IH PRN (10:17)
[2020-10-07] MEDS: MONTELUKAST NA 10 MG TABLET PO SCH (10:29)
[2020-10-07] MEDS: ACETAMINOPHEN 325 MG TABLET (FP) PO PRN (13:57)
[2020-10-07] MEDS: OLANZapine 10 MG TABLET PO SCH (21:25)
[2020-10-07] MEDS: THIAMINE HCL 100 MG TABLET (FP) PO SCH (21:26)
[2020-10-07] MEDS: traZODone HCL 100 MG TABLET (FP) PO SCH (21:26)
[2020-10-08] MEDS: ACETAMINOPHEN 325 MG TABLET (FP) PO PRN ×2 (06:27→15:57)
[2020-10-08] MEDS: hydrOXYzine PAMOATE 25 MG CAPSULE (FP) PO SCH ×5 (06:27→21:15)
[2020-10-08] MEDS: PRENATAL VITAMINS W/ FOLIC ACID TABLET (FP) PO SCH (09:19)
[2020-10-08] MEDS: ASPIRIN 81 MG CHEWABLE TABLETS PO SCH (09:19)
[2020-10-08] MEDS: CYCLOBENZAPRINE HCL 10 MG TABLET (FP) PO SCH (09:20)
[2020-10-08] MEDS: amLODIPine BESYLATE 10 MG TABLET (FP) PO SCH (09:20)
[2020-10-08] MEDS: OMEGA-3 ACID ETHYL ESTERS (FATTY-ACIDS) 1 GM CAPSULE (FP) PO SCH ×2 (09:20→21:15)
[2020-10-08] MEDS: ATORVASTATIN CA 20 MG TABLET (FP) PO SCH (09:21)
[2020-10-08] MEDS: METHIMAZOLE 5 MG TABLET PO SCH (09:21)
[2020-10-08] MEDS: MONTELUKAST NA 10 MG TABLET PO SCH (09:21)
[2020-10-08] MEDS: GABAPENTIN 300 MG CAPSULE PO SCH ×2 (09:21→21:16)
[2020-10-08] MEDS: NICOTINE 7 MG/24 HOURS TOPICAL PATCH TD SCH (09:21)
[2020-10-08] MEDS: METHYL SALICYLATE/MENTHOL OINT 30 GM TUBE TP SCH ×2 (09:21→21:18)
[2020-10-08] MEDS: ALBUTEROL SO4 HFA INHALER IH PRN ×2 (09:23→13:43)
[2020-10-08] MEDS: IBUPROFEN 400 MG TABLET (FP) PO PRN (13:43)
[2020-10-08] MEDS: BUPRENORPHINE/NALOXONE 4 MG/1 MG FILM PACKET SL SCH (13:44)
[2020-10-08] MEDS: OLANZapine 10 MG TABLET PO SCH (21:16)
[2020-10-08] MEDS: THIAMINE HCL 100 MG TABLET (FP) PO SCH (21:16)
[2020-10-08] MEDS: traZODone HCL 100 MG TABLET (FP) PO SCH (21:17)
[2020-10-09] MEDS: hydrOXYzine PAMOATE 25 MG CAPSULE (FP) PO SCH ×5 (07:53→21:40)
[2020-10-09] MEDS: IBUPROFEN 400 MG TABLET (FP) PO PRN (07:54)
[2020-10-09] MEDS: CYCLOBENZAPRINE HCL 10 MG TABLET (FP) PO SCH ×3 (10:14→21:41)
[2020-10-09] MEDS: PRENATAL VITAMINS W/ FOLIC ACID TABLET (FP) PO SCH (10:14)
[2020-10-09] MEDS: MONTELUKAST NA 10 MG TABLET PO SCH (10:15)
[2020-10-09] MEDS: ASPIRIN 81 MG CHEWABLE TABLETS PO SCH (10:15)
[2020-10-09] MEDS: ATORVASTATIN CA 20 MG TABLET (FP) PO SCH (10:15)
[2020-10-09] MEDS: OMEGA-3 ACID ETHYL ESTERS (FATTY-ACIDS) 1 GM CAPSULE (FP) PO SCH ×2 (10:15→21:40)
[2020-10-09] MEDS: GABAPENTIN 300 MG CAPSULE PO SCH ×2 (10:15→21:40)
[2020-10-09] MEDS: BUPRENORPHINE/NALOXONE 4 MG/1 MG FILM PACKET SL SCH (10:16)
[2020-10-09] MEDS: amLODIPine BESYLATE 10 MG TABLET (FP) PO SCH (10:16)
[2020-10-09] MEDS: ERGOCALCIFEROL (VIT D2) 50,000 UNIT (1.25 MG) CAPSULE PO SCH (10:16)
[2020-10-09] MEDS: METHYL SALICYLATE/MENTHOL OINT 30 GM TUBE TP SCH ×2 (10:16→21:43)
[2020-10-09] MEDS: METHIMAZOLE 5 MG TABLET PO SCH (10:16)
[2020-10-09] MEDS: NICOTINE 7 MG/24 HOURS TOPICAL PATCH TD SCH (10:17)
[2020-10-09] MEDS: ALBUTEROL SO4 HFA INHALER IH PRN (10:20)
[2020-10-09] MEDS: OLANZapine 10 MG TABLET PO SCH (21:41)
[2020-10-09] MEDS: THIAMINE HCL 100 MG TABLET (FP) PO SCH (21:41)
[2020-10-09] MEDS: traZODone HCL 100 MG TABLET (FP) PO SCH (21:43)
[2020-10-10] MEDS: hydrOXYzine PAMOATE 25 MG CAPSULE (FP) PO SCH ×5 (06:23→21:15)
[2020-10-10] MEDS: CYCLOBENZAPRINE HCL 10 MG TABLET (FP) PO SCH ×3 (06:23→21:14)
[2020-10-10] MEDS: METHIMAZOLE 5 MG TABLET PO SCH (10:25)
[2020-10-10] MEDS: BUPRENORPHINE/NALOXONE 4 MG/1 MG FILM PACKET SL SCH ×2 (10:25→15:18)
[2020-10-10] MEDS: PRENATAL VITAMINS W/ FOLIC ACID TABLET (FP) PO SCH (10:25)
[2020-10-10] MEDS: OMEGA-3 ACID ETHYL ESTERS (FATTY-ACIDS) 1 GM CAPSULE (FP) PO SCH ×2 (10:26→21:14)
[2020-10-10] MEDS: MONTELUKAST NA 10 MG TABLET PO SCH (10:26)
[2020-10-10] MEDS: METHYL SALICYLATE/MENTHOL OINT 30 GM TUBE TP SCH ×2 (10:26→21:15)
[2020-10-10] MEDS: GABAPENTIN 300 MG CAPSULE PO SCH ×2 (10:26→21:14)
[2020-10-10] MEDS: ASPIRIN 81 MG CHEWABLE TABLETS PO SCH (10:26)
[2020-10-10] MEDS: amLODIPine BESYLATE 10 MG TABLET (FP) PO SCH (10:26)
[2020-10-10] MEDS: ATORVASTATIN CA 20 MG TABLET (FP) PO SCH (10:26)
[2020-10-10] MEDS: NICOTINE 7 MG/24 HOURS TOPICAL PATCH TD SCH (10:27)
[2020-10-10] MEDS: ALBUTEROL SO4 HFA INHALER IH PRN (10:30)
[2020-10-10] MEDS: MAGNESIUM HYDROX 2400MG/30ML ORAL SUSPENSION 30 ML CUP PO PRN (16:42)
[2020-10-10] MEDS: OLANZapine 10 MG TABLET PO SCH (21:14)
[2020-10-10] MEDS: THIAMINE HCL 100 MG TABLET (FP) PO SCH (21:15)
[2020-10-10] MEDS: traZODone HCL 100 MG TABLET (FP) PO SCH (21:15)
[2020-10-11] MEDS: CYCLOBENZAPRINE HCL 10 MG TABLET (FP) PO SCH ×3 (06:45→21:29)
[2020-10-11] MEDS: hydrOXYzine PAMOATE 25 MG CAPSULE (FP) PO SCH ×5 (06:45→21:32)
[2020-10-11] MEDS: GABAPENTIN 300 MG CAPSULE PO SCH ×2 (09:57→21:30)
[2020-10-11] MEDS: ASPIRIN 81 MG CHEWABLE TABLETS PO SCH (09:57)
[2020-10-11] MEDS: ATORVASTATIN CA 20 MG TABLET (FP) PO SCH (09:57)
[2020-10-11] MEDS: PRENATAL VITAMINS W/ FOLIC ACID TABLET (FP) PO SCH (09:57)
[2020-10-11] MEDS: OMEGA-3 ACID ETHYL ESTERS (FATTY-ACIDS) 1 GM CAPSULE (FP) PO SCH ×2 (09:59→21:30)
[2020-10-11] MEDS: NICOTINE 7 MG/24 HOURS TOPICAL PATCH TD SCH (10:00)
[2020-10-11] MEDS: BUPRENORPHINE/NALOXONE 4 MG/1 MG FILM PACKET SL SCH ×2 (10:01→16:39)
[2020-10-11] MEDS: amLODIPine BESYLATE 10 MG TABLET (FP) PO SCH (10:01)
[2020-10-11] MEDS: MONTELUKAST NA 10 MG TABLET PO SCH (10:01)
[2020-10-11] MEDS: METHYL SALICYLATE/MENTHOL OINT 30 GM TUBE TP SCH ×2 (10:02→21:32)
[2020-10-11] MEDS: METHIMAZOLE 5 MG TABLET PO SCH (10:03)
[2020-10-11] MEDS: OLANZapine 10 MG TABLET PO SCH (21:29)
[2020-10-11] MEDS: MAG HYDROX/AL HYDROX/SIMETH 30 ML UNIT-DOSE CUP PO PRN (21:31)
[2020-10-11] MEDS: traZODone HCL 100 MG TABLET (FP) PO SCH (21:31)
[2020-10-11] MEDS: THIAMINE HCL 100 MG TABLET (FP) PO SCH (21:43)
[2020-10-12] MEDS: CYCLOBENZAPRINE HCL 10 MG TABLET (FP) PO SCH ×3 (06:26→21:12)
[2020-10-12] MEDS: hydrOXYzine PAMOATE 25 MG CAPSULE (FP) PO SCH ×5 (06:26→21:11)
[2020-10-12] MEDS: ASPIRIN 81 MG CHEWABLE TABLETS PO SCH (10:03)
[2020-10-12] MEDS: GABAPENTIN 300 MG CAPSULE PO SCH ×2 (10:03→21:11)
[2020-10-12] MEDS: BUPRENORPHINE/NALOXONE 4 MG/1 MG FILM PACKET SL SCH ×2 (10:04→16:06)
[2020-10-12] MEDS: PRENATAL VITAMINS W/ FOLIC ACID TABLET (FP) PO SCH (10:04)
[2020-10-12] MEDS: ATORVASTATIN CA 20 MG TABLET (FP) PO SCH (10:04)
[2020-10-12] MEDS: MONTELUKAST NA 10 MG TABLET PO SCH (10:04)
[2020-10-12] MEDS: METHIMAZOLE 5 MG TABLET PO SCH (10:04)
[2020-10-12] MEDS: OMEGA-3 ACID ETHYL ESTERS (FATTY-ACIDS) 1 GM CAPSULE (FP) PO SCH ×2 (10:04→21:12)
[2020-10-12] MEDS: NICOTINE 7 MG/24 HOURS TOPICAL PATCH TD SCH (10:05)
[2020-10-12] MEDS: amLODIPine BESYLATE 10 MG TABLET (FP) PO SCH (10:05)
[2020-10-12] MEDS: METHYL SALICYLATE/MENTHOL OINT 30 GM TUBE TP SCH ×2 (10:05→22:30)
[2020-10-12] MEDS: IBUPROFEN 400 MG TABLET (FP) PO PRN (14:06)
[2020-10-12] MEDS: MAGNESIUM HYDROX 2400MG/30ML ORAL SUSPENSION 30 ML CUP PO PRN (19:22)
[2020-10-12] MEDS: OLANZapine 10 MG TABLET PO SCH (21:11)
[2020-10-12] MEDS: THIAMINE HCL 100 MG TABLET (FP) PO SCH (21:11)
[2020-10-12] MEDS: MAG HYDROX/AL HYDROX/SIMETH 30 ML UNIT-DOSE CUP PO PRN (21:12)
[2020-10-12] MEDS: traZODone HCL 100 MG TABLET (FP) PO SCH (21:12)
[2020-10-13] MEDS: hydrOXYzine PAMOATE 25 MG CAPSULE (FP) PO SCH ×5 (06:57→21:23)
[2020-10-13] MEDS: CYCLOBENZAPRINE HCL 10 MG TABLET (FP) PO SCH ×3 (06:57→21:25)
[2020-10-13] MEDS ORDERED: hydrOXYzine PAMOATE 50 MG CAPSULE (FP) PO STA (08:18)
[2020-10-13] MEDS: NICOTINE 7 MG/24 HOURS TOPICAL PATCH TD SCH (09:20)
[2020-10-13] MEDS: amLODIPine BESYLATE 10 MG TABLET (FP) PO SCH (09:20)
[2020-10-13] MEDS: GABAPENTIN 300 MG CAPSULE PO SCH ×2 (09:20→21:25)
[2020-10-13] MEDS: ATORVASTATIN CA 20 MG TABLET (FP) PO SCH (09:20)
[2020-10-13] MEDS: MONTELUKAST NA 10 MG TABLET PO SCH (09:20)
[2020-10-13] MEDS: METHIMAZOLE 5 MG TABLET PO SCH (09:21)
[2020-10-13] MEDS: METHYL SALICYLATE/MENTHOL OINT 30 GM TUBE TP SCH ×2 (09:21→21:26)
[2020-10-13] MEDS: PRENATAL VITAMINS W/ FOLIC ACID TABLET (FP) PO SCH (09:21)
[2020-10-13] MEDS: OMEGA-3 ACID ETHYL ESTERS (FATTY-ACIDS) 1 GM CAPSULE (FP) PO SCH ×2 (09:21→21:23)
[2020-10-13] MEDS: ASPIRIN 81 MG CHEWABLE TABLETS PO SCH (09:21)
[2020-10-13] MEDS: BUPRENORPHINE/NALOXONE 4 MG/1 MG FILM PACKET SL SCH ×2 (09:22→16:33)
[2020-10-13] MEDS: ALBUTEROL SO4 HFA INHALER IH PRN (09:25)
[2020-10-13] MEDS: THIAMINE HCL 100 MG TABLET (FP) PO SCH (21:23)
[2020-10-13] MEDS: traZODone HCL 100 MG TABLET (FP) PO SCH (21:24)
[2020-10-13] MEDS: OLANZapine 10 MG TABLET PO SCH (21:25)
[2020-10-13] MEDS: MAG HYDROX/AL HYDROX/SIMETH 30 ML UNIT-DOSE CUP PO PRN (22:29)
[2020-10-14] MEDS: CYCLOBENZAPRINE HCL 10 MG TABLET (FP) PO SCH ×3 (06:24→21:06)
[2020-10-14] MEDS: hydrOXYzine PAMOATE 25 MG CAPSULE (FP) PO SCH ×5 (06:25→21:06)
[2020-10-14] MEDS: ATORVASTATIN CA 20 MG TABLET (FP) PO SCH (09:44)
[2020-10-14] MEDS: METHIMAZOLE 5 MG TABLET PO SCH (09:44)
[2020-10-14] MEDS: MONTELUKAST NA 10 MG TABLET PO SCH (09:44)
[2020-10-14] MEDS: ASPIRIN 81 MG CHEWABLE TABLETS PO SCH (09:44)
[2020-10-14] MEDS: NICOTINE 7 MG/24 HOURS TOPICAL PATCH TD SCH (09:44)
[2020-10-14] MEDS: OMEGA-3 ACID ETHYL ESTERS (FATTY-ACIDS) 1 GM CAPSULE (FP) PO SCH ×2 (09:45→21:06)
[2020-10-14] MEDS: GABAPENTIN 300 MG CAPSULE PO SCH ×2 (09:45→21:06)
[2020-10-14] MEDS: amLODIPine BESYLATE 10 MG TABLET (FP) PO SCH (09:45)
[2020-10-14] MEDS: BUPRENORPHINE/NALOXONE 4 MG/1 MG FILM PACKET SL SCH ×2 (09:45→16:10)
[2020-10-14] MEDS: PRENATAL VITAMINS W/ FOLIC ACID TABLET (FP) PO SCH (09:45)
[2020-10-14] MEDS: ALBUTEROL SO4 HFA INHALER IH PRN (09:47)
[2020-10-14] MEDS: METHYL SALICYLATE/MENTHOL OINT 30 GM TUBE TP SCH ×2 (09:57→21:07)
[2020-10-14] MEDS: MAG HYDROX/AL HYDROX/SIMETH 30 ML UNIT-DOSE CUP PO PRN (19:17)
[2020-10-14] MEDS: MAGNESIUM HYDROX 2400MG/30ML ORAL SUSPENSION 30 ML CUP PO PRN (19:21)
[2020-10-14] MEDS: traZODone HCL 100 MG TABLET (FP) PO SCH (21:06)
[2020-10-14] MEDS: THIAMINE HCL 100 MG TABLET (FP) PO SCH (21:07)
[2020-10-14] MEDS: OLANZapine 10 MG TABLET PO SCH (21:43)
[2020-10-15] MEDS: hydrOXYzine PAMOATE 25 MG CAPSULE (FP) PO SCH ×5 (06:28→21:34)
[2020-10-15] MEDS: IBUPROFEN 400 MG TABLET (FP) PO PRN ×2 (06:29→16:15)
[2020-10-15] MEDS: CYCLOBENZAPRINE HCL 10 MG TABLET (FP) PO SCH ×3 (06:29→21:35)
[2020-10-15] MEDS: ATORVASTATIN CA 20 MG TABLET (FP) PO SCH (10:18)
[2020-10-15] MEDS: ASPIRIN 81 MG CHEWABLE TABLETS PO SCH (10:19)
[2020-10-15] MEDS: OMEGA-3 ACID ETHYL ESTERS (FATTY-ACIDS) 1 GM CAPSULE (FP) PO SCH ×2 (10:19→21:34)
[2020-10-15] MEDS: MONTELUKAST NA 10 MG TABLET PO SCH (10:19)
[2020-10-15] MEDS: GABAPENTIN 300 MG CAPSULE PO SCH ×2 (10:19→21:35)
[2020-10-15] MEDS: amLODIPine BESYLATE 10 MG TABLET (FP) PO SCH (10:19)
[2020-10-15] MEDS: PRENATAL VITAMINS W/ FOLIC ACID TABLET (FP) PO SCH (10:19)
[2020-10-15] MEDS: NICOTINE 7 MG/24 HOURS TOPICAL PATCH TD SCH (10:21)
[2020-10-15] MEDS: METHIMAZOLE 5 MG TABLET PO SCH (10:21)
[2020-10-15] MEDS: BUPRENORPHINE/NALOXONE 4 MG/1 MG FILM PACKET SL SCH ×2 (10:23→16:11)
[2020-10-15] MEDS: METHYL SALICYLATE/MENTHOL OINT 30 GM TUBE TP SCH ×2 (10:24→22:04)
[2020-10-15] MEDS: OLANZapine 10 MG TABLET PO SCH (21:35)
[2020-10-15] MEDS: THIAMINE HCL 100 MG TABLET (FP) PO SCH (21:35)
[2020-10-15] MEDS: traZODone HCL 100 MG TABLET (FP) PO SCH (22:04)
[2020-10-16] MEDS: hydrOXYzine PAMOATE 25 MG CAPSULE (FP) PO SCH ×2 (06:01→09:31)
[2020-10-16] MEDS: CYCLOBENZAPRINE HCL 10 MG TABLET (FP) PO SCH (06:01)
[2020-10-16 07:03] VITALS: BP 149/88; PULSE 89; TEMP 97.8
[2020-10-16] MEDS: OMEGA-3 ACID ETHYL ESTERS (FATTY-ACIDS) 1 GM CAPSULE (FP) PO SCH (09:29)
[2020-10-16] MEDS: amLODIPine BESYLATE 10 MG TABLET (FP) PO SCH (09:29)
[2020-10-16] MEDS: GABAPENTIN 300 MG CAPSULE PO SCH (09:29)
[2020-10-16] MEDS: MONTELUKAST NA 10 MG TABLET PO SCH (09:29)
[2020-10-16] MEDS: PRENATAL VITAMINS W/ FOLIC ACID TABLET (FP) PO SCH (09:29)
[2020-10-16] MEDS: ATORVASTATIN CA 20 MG TABLET (FP) PO SCH (09:29)
[2020-10-16] MEDS: ASPIRIN 81 MG CHEWABLE TABLETS PO SCH (09:29)
[2020-10-16] MEDS: ALBUTEROL SO4 HFA INHALER IH PRN (09:30)
[2020-10-16] MEDS: METHYL SALICYLATE/MENTHOL OINT 30 GM TUBE TP SCH (09:30)
[2020-10-16] MEDS: ERGOCALCIFEROL (VIT D2) 50,000 UNIT (1.25 MG) CAPSULE PO SCH (09:30)
[2020-10-16] MEDS: METHIMAZOLE 5 MG TABLET PO SCH (09:31)
[2020-10-16] MEDS: NICOTINE 7 MG/24 HOURS TOPICAL PATCH TD SCH (09:32)
[2020-10-16] MEDS: BUPRENORPHINE/NALOXONE 4 MG/1 MG FILM PACKET SL SCH (09:32)
== END 2020-10-16 10:26 | disposition home or self-care (01) | DRG 772 ==
LOC: YASAS 13:59 → Y3W 14:00
PROVIDERS: ADMIT Allergy & Immunology; ATTEND Allergy & Immunology
PROC: HZ42ZZZ Group Counseling for Substance Abuse Treatment, Cognitive-Behavioral (ICD-10-PCS; principal; 2020-10-02)
DX: F11.20 Opioid dependence, uncomplicated (principal); F13.20 Sedative, hypnotic or anxiolytic dependence, uncomplicated; F12.20 Cannabis dependence, uncomplicated; F17.210 Nicotine dependence, cigarettes, uncomplicated; F20.9 Schizophrenia, unspecified; F31.9 Bipolar disorder, unspecified; F19.24 Other psychoactive substance dependence with psychoactive substance-induced mood disorder; F41.9 Anxiety disorder, unspecified; I10 Essential (primary) hypertension; J45.909 Unspecified asthma, uncomplicated; E05.90 Thyrotoxicosis, unspecified without thyrotoxic crisis or storm; Z62.810 Personal history of physical and sexual abuse in childhood; Z51.81 Encounter for therapeutic drug level monitoring

== ENCOUNTER 2021-03-27 07:13 | Emergency (ER) | payer OTHER ==
[2021-03-27 07:32] VITALS: BP 188/98; PULSE 118; TEMP 98.1; BMI 25.4
[2021-03-30 13:07] LABS: SARS-CoV-2 NAA Detected (Not Detected)
== END 2021-03-27 09:26 | disposition home or self-care (01) ==
LOC: JER 07:13
DX: R53.83 Other fatigue (principal)
CPT/HCPCS: 87804; 99283-25; C9803-CS; U0003; U0005

== ENCOUNTER 2022-07-08 14:54 | Inpatient (IN) | payer OTHER ==
[2022-07-08] MEDS ORDERED: ONDANSETRON 4 MG/2 ML VIAL IVPUSH ONE (15:34)
[2022-07-08] MEDS ORDERED: ACETAMINOPHEN 1000 MG/100 ML BAG IVPB ONE (15:34)
[2022-07-08] MEDS ORDERED: SODIUM CHLORIDE 0.9% 500 ML INFUS.BAG IV ONE (15:35)
[2022-07-08] MEDS ORDERED: ONDANSETRON 4 MG/2 ML VIAL ONE (15:46)
[2022-07-08] MEDS ORDERED: ACETAMINOPHEN INJECTION 100 ML IVPB ONE (15:46)
[2022-07-08] MEDS ORDERED: FAMOTIDINE 20 MG/50 ML IVPB 20 MG/50 ML MG IVPB ONE ×2 (15:52→16:06)
[2022-07-08 16:33] LABS: BASO % 0.6 % (0-2.0); HEMATOCRIT 45.4 % (32.4-45.2); HEMOGLOBIN 15.3 GM/dL (10.7-15.3); LYMPH % 19.9 % (8-40); MCH 30.2 pg (25.7-33.7); MCHC 33.7 g/dl (32.0-36.0); MEAN CELL VOLUME 89.7 fl (80-96); MONO % 2.3 % (3.8-10.2); NEUT % 77.2 % (42.8-82.8); PLATELET COUNT 263 10^3/uL (134-434); RBC 5.06 M/mm3 (3.60-5.2); RDW 14.5 % (11.6-15.6); WHITE BLOOD COUNT 8.7 K/mm3 (4.0-10.0)
[2022-07-08 16:34] LABS: EPI CELLS 18 /uL (0-25.1); HYALINE CASTS 0 /uL (0-3.1); PH,URINE >= 9.0 (5.0-8.0); URINE APPEARANCE CLEAR; URINE BACTERIA 467 /uL (0-1359); URINE BILIRUBIN NEGATIVE (NEGATIVE); URINE COLOR YELLOW; URINE GLUCOSE (UA) NEGATIVE (NEGATIVE); URINE KETONE 2+ (NEGATIVE); URINE LEUK ESTERASE NEGATIVE (NEGATIVE); URINE NITRITE NEGATIVE (NEGATIVE); URINE PROTEIN 1+ (NEGATIVE); URINE RBC 44 /uL (0-23.9); URINE UROBILINOGEN 0.2 mg/dL (0.2-1.0); URINE WBC 4 /uL (0-25.8)
[2022-07-08 16:35] LABS: HCG,QUALITATIVE URINE Negative
[2022-07-08 16:37] LABS: URINE BARBITURATES NEGATIVE (NEGATIVE)
[2022-07-08 16:38] LABS: COCAINE, UR NEGATIVE (NEGATIVE); PHENCYCLIDINE,URINE NEGATIVE (NEGATIVE); URINE AMPHETAMINES NEGATIVE (NEGATIVE); URINE BENZODIAZEPINES NEGATIVE (NEGATIVE)
[2022-07-08 16:42] LABS: METHADONE, UR NEGATIVE (NEGATIVE); OPIATES, URI POSITIVE (NEGATIVE)
[2022-07-08] MEDS ORDERED: METOCLOPRAMIDE HCL INJECTION 10 MG/2 ML VIAL IVPUSH ONE (17:06)
[2022-07-08] MEDS ORDERED: METOCLOPRAMIDE HCL INJECTION 10 MG/2 ML VIAL ONE (17:08)
[2022-07-08 17:12] LABS: ALBUMIN 4.4 g/dl (3.4-5.0); BLOOD UREA NITROGEN 6.6 mg/dL (7-18); CALCIUM 10.6 mg/dL (8.5-10.1)
[2022-07-08 17:15] LABS: CREATININE 0.7 mg/dL (0.55-1.3)
[2022-07-08 17:17] LABS: BILIRUBIN,TOTAL 0.6 mg/dL (0.2-1); TOT PROT 9.1 g/dl (6.4-8.2)
[2022-07-08] MEDS ORDERED: HALOPERIDOL LACTATE 5 MG/ML IM ONE ×2 (18:29→18:35)
[2022-07-08] MEDS ORDERED: CEFTRIAXONE 1 GM in DEXTROSE 5%-WATER - 100 ML IVPB ONE (19:09)
[2022-07-08] MEDS ORDERED: AZITHROMYCIN IVPB 500 MG in DEXTROSE 5%-WATER - 250 ML IVPB ONE (19:09)
[2022-07-08] MEDS ORDERED: CEFTRIAXONE 1 GM/50 ML BAG ONE (19:30)
[2022-07-08] MEDS ORDERED: AZITHROMYCIN IVPB 500 MG/250 ML BAG IVPB ONE (19:30)
[2022-07-08] MEDS ORDERED: ALBUTEROL SO4 HFA INHALER IH PRN (23:50)
[2022-07-08] MEDS ORDERED: TRIMETHOBENZAMIDE HCL 200MG/2ML INJ IM PRN (23:52)
[2022-07-09] MEDS ORDERED: LOSARTAN POTASSIUM 25 MG TABLET PO SCH ×2 (00:16→10:00)
[2022-07-09] MEDS ORDERED: amLODIPine BESYLATE 5 MG TABLET (FP) PO SCH ×2 (00:16→10:00)
[2022-07-09] MEDS ORDERED: LOSARTAN POTASSIUM 25 MG TABLET PO ONE ×2 (00:36→05:14)
[2022-07-09] MEDS ORDERED: amLODIPine BESYLATE 5 MG TABLET (FP) PO ONE (00:37)
[2022-07-09] MEDS ORDERED: LOSARTAN POTASSIUM 25 MG TABLET ONE (00:38)
[2022-07-09] MEDS ORDERED: amLODIPine BESYLATE 5 MG TABLET (FP) ONE (00:43)
[2022-07-09] MEDS: ACETAMINOPHEN 325 MG TABLET (FP) PO PRN ×2 (02:51→14:17)
[2022-07-09 03:38] VITALS: BMI 23.3
[2022-07-09] MEDS: CEFTRIAXONE 1 GM in DEXTROSE 5%-WATER - 50 ML IVPB SCH (09:27)
[2022-07-09] MEDS: ENOXAPARIN NA (PORCINE) 40 MG/0.4 ML DISP.SYRIN SQ SCH (09:27)
[2022-07-09] MEDS: DOXYCYCLINE INJECTION 100 MG in DEXTROSE 5%-WATER 100 ML IVPB SCH ×2 (09:27→21:22)
[2022-07-09] MEDS: amLODIPine BESYLATE 5 MG TABLET (FP) PO SCH (09:27)
[2022-07-09] MEDS: NICOTINE 14 MG/24 HOURS TOPICAL PATCH TD SCH ×2 (09:27→09:36)
[2022-07-09] MEDS: ASPIRIN 81 MG CHEWABLE TABLETS PO SCH (09:28)
[2022-07-09] MEDS: LOSARTAN POTASSIUM 25 MG TABLET PO SCH (09:28)
[2022-07-09] MEDS: GABAPENTIN 300 MG CAPSULE PO SCH ×2 (09:28→21:23)
[2022-07-09] MEDS ORDERED: PATIENT'S OWN MEDICATION (NON-FORMULARY) (Metoprolol Succinate [Kapspargo Sprinkle] 100 MG PO SCH (10:00)
[2022-07-09 10:02] LABS: BASO % 0.6 % (0-2.0); EOS % 0.5 % (0-4.5); HEMATOCRIT 47.6 % (32.4-45.2); HEMOGLOBIN 16.6 GM/dL (10.7-15.3); LYMPH % 16.2 % (8-40); MCH 30.9 pg (25.7-33.7); MCHC 34.9 g/dl (32.0-36.0); MEAN CELL VOLUME 88.6 fl (80-96); MEAN PLT VOLUME 9.5 fl (7.5-11.1); MONO % 5.9 % (3.8-10.2); NEUT % 76.8 % (42.8-82.8); PLATELET COUNT 273 10^3/uL (134-434); RBC 5.38 M/mm3 (3.60-5.2); RDW 14.6 % (11.6-15.6); WHITE BLOOD COUNT 14.4 K/mm3 (4.0-10.0)
[2022-07-09 11:13] LABS: ALBUMIN 4.1 g/dl (3.4-5.0); BLOOD UREA NITROGEN 8.9 mg/dL (7-18)
[2022-07-09 11:16] LABS: PHOSPHOROUS 4.1 mg/dL (2.5-4.9)
[2022-07-09 11:17] LABS: CREATININE 0.7 mg/dL (0.55-1.3)
[2022-07-09 11:18] LABS: BILIRUBIN,TOTAL 0.5 mg/dL (0.2-1)
[2022-07-09 11:23] LABS: MAGNESIUM 1.9 mg/dL (1.8-2.4)
[2022-07-09] MEDS: POTASSIUM CHLORIDE TABS 20 MEQ TABLET.ER (FP) PO SCH (11:42)
[2022-07-09] MEDS ORDERED: QUEtiapine FUMARATE 25 MG TABLET ONE (21:07)
[2022-07-09] MEDS ORDERED: SODIUM CHLORIDE 0.45% 1,000 ML IV SCH (21:15)
[2022-07-09] MEDS ORDERED: LACTATED RINGERS SOLUTION 1,000 ML/1,000 ML INFUS.BAG IV SCH (21:15)
[2022-07-09] MEDS: ATORVASTATIN CA 10 MG TABLET (FP) PO SCH (21:23)
[2022-07-09] MEDS: cloNIDine HCL 0.1 MG TABLET PO SCH (21:23)
[2022-07-09] MEDS: POLYETHYLENE GLYCOL (HEALTHYLAX) 3350 17 GM PACKET PO SCH ×2 (21:23→23:11)
[2022-07-09] MEDS: MONTELUKAST NA 10 MG TABLET PO SCH (21:24)
[2022-07-09 21:25] LABS: HEMATOCRIT 48.3 % (32.4-45.2); HEMOGLOBIN 16.3 GM/dL (10.7-15.3); MCH 29.8 pg (25.7-33.7); MCHC 33.6 g/dl (32.0-36.0); MEAN CELL VOLUME 88.5 fl (80-96); MEAN PLT VOLUME 8.7 fl (7.5-11.1); PLATELET COUNT 282 10^3/uL (134-434); RBC 5.46 M/mm3 (3.60-5.2); RDW 14.9 % (11.6-15.6); WHITE BLOOD COUNT 14.3 K/mm3 (4.0-10.0)
[2022-07-09 21:46] LABS: BLOOD UREA NITROGEN 17.7 mg/dL (7-18); CALCIUM 9.6 mg/dL (8.5-10.1)
[2022-07-09 21:48] LABS: CREATININE 1.1 mg/dL (0.55-1.3)
[2022-07-09 21:49] LABS: BILIRUBIN,TOTAL 0.6 mg/dL (0.2-1)
[2022-07-09 21:51] LABS: TOT PROT 8.6 g/dl (6.4-8.2)
[2022-07-09] MEDS: QUEtiapine FUMARATE 50 MG TABLET PO SCH (21:55)
[2022-07-09] MEDS ORDERED: cloNIDine HCL 0.1 MG TABLET PO SCH (22:00)
[2022-07-09] MEDS ORDERED: POLYETHYLENE GLYCOL (HEALTHYLAX) 3350 17 GM PACKET PO SCH (22:00)
[2022-07-10] MEDS: POLYETHYLENE GLYCOL (HEALTHYLAX) 3350 17 GM PACKET PO SCH (06:47)
[2022-07-10] MEDS: GABAPENTIN 300 MG CAPSULE PO SCH ×2 (09:51→21:11)
[2022-07-10] MEDS: ASPIRIN 81 MG CHEWABLE TABLETS PO SCH (09:52)
[2022-07-10] MEDS: amLODIPine BESYLATE 5 MG TABLET (FP) PO SCH (09:52)
[2022-07-10] MEDS: LOSARTAN POTASSIUM 25 MG TABLET PO SCH (09:52)
[2022-07-10] MEDS: POTASSIUM CHLORIDE TABS 20 MEQ TABLET.ER (FP) PO SCH (09:52)
[2022-07-10] MEDS: DOXYCYCLINE INJECTION 100 MG in DEXTROSE 5%-WATER 100 ML IVPB SCH ×2 (09:53→21:10)
[2022-07-10] MEDS: cloNIDine HCL 0.1 MG TABLET PO SCH ×2 (09:53→21:11)
[2022-07-10] MEDS: ENOXAPARIN NA (PORCINE) 40 MG/0.4 ML DISP.SYRIN SQ SCH (09:53)
[2022-07-10] MEDS: CEFTRIAXONE 1 GM in DEXTROSE 5%-WATER - 50 ML IVPB SCH (09:53)
[2022-07-10] MEDS: NICOTINE 14 MG/24 HOURS TOPICAL PATCH TD SCH (09:53)
[2022-07-10 10:20] LABS: BASO % 0.6 % (0-2.0); EOS % 0.2 % (0-4.5); HEMATOCRIT 47.4 % (32.4-45.2); LYMPH % 36.3 % (8-40); MCHC 33.7 g/dl (32.0-36.0); MEAN PLT VOLUME 9.6 fl (7.5-11.1); MONO % 7.1 % (3.8-10.2); NEUT % 55.8 % (42.8-82.8); PLATELET COUNT 269 10^3/uL (134-434); RBC 5.32 M/mm3 (3.60-5.2); RDW 14.7 % (11.6-15.6); WHITE BLOOD COUNT 12.9 K/mm3 (4.0-10.0)
[2022-07-10] MEDS ORDERED: POTASSIUM CHLORIDE TABS 20 MEQ TABLET.ER (FP) PO SCH (11:30)
[2022-07-10] MEDS ORDERED: METHIMAZOLE 10 MG TABLET PO SCH (12:15)
[2022-07-10] MEDS ORDERED: METHIMAZOLE 5 MG TABLET PO SCH (14:52)
[2022-07-10] MEDS: METHIMAZOLE 5 MG TABLET PO SCH (17:38)
[2022-07-10] MEDS ORDERED: QUEtiapine FUMARATE 25 MG TABLET ONE (20:59)
[2022-07-10] MEDS: ATORVASTATIN CA 10 MG TABLET (FP) PO SCH (21:11)
[2022-07-10] MEDS: MONTELUKAST NA 10 MG TABLET PO SCH (21:11)
[2022-07-10] MEDS: QUEtiapine FUMARATE 50 MG TABLET PO SCH (21:15)
[2022-07-11 10:18] LABS: HEMATOCRIT 43.7 % (32.4-45.2); HEMOGLOBIN 14.7 GM/dL (10.7-15.3); MCH 30.4 pg (25.7-33.7); MCHC 33.5 g/dl (32.0-36.0); MEAN CELL VOLUME 90.8 fl (80-96); MEAN PLT VOLUME 8.7 fl (7.5-11.1); PLATELET COUNT 247 10^3/uL (134-434); RBC 4.82 M/mm3 (3.60-5.2); RDW 14.6 % (11.6-15.6); WHITE BLOOD COUNT 6.5 K/mm3 (4.0-10.0)
[2022-07-11] MEDS: ASPIRIN 81 MG CHEWABLE TABLETS PO SCH (10:31)
[2022-07-11] MEDS: CEFTRIAXONE 1 GM in DEXTROSE 5%-WATER - 50 ML IVPB SCH (10:31)
[2022-07-11] MEDS: LOSARTAN POTASSIUM 25 MG TABLET PO SCH (10:31)
[2022-07-11] MEDS: GABAPENTIN 300 MG CAPSULE PO SCH (10:31)
[2022-07-11] MEDS: amLODIPine BESYLATE 5 MG TABLET (FP) PO SCH (10:31)
[2022-07-11] MEDS: DOXYCYCLINE INJECTION 100 MG in DEXTROSE 5%-WATER 100 ML IVPB SCH (10:31)
[2022-07-11] MEDS: METHIMAZOLE 5 MG TABLET PO SCH (10:32)
[2022-07-11] MEDS: ENOXAPARIN NA (PORCINE) 40 MG/0.4 ML DISP.SYRIN SQ SCH (10:32)
[2022-07-11] MEDS: NICOTINE 14 MG/24 HOURS TOPICAL PATCH TD SCH (10:32)
[2022-07-11 10:34] LABS: CALCIUM 9.8 mg/dL (8.5-10.1)
[2022-07-11] MEDS: cloNIDine HCL 0.1 MG TABLET PO SCH (10:34)
[2022-07-11 10:35] LABS: BLOOD UREA NITROGEN 28.9 mg/dL (7-18)
[2022-07-11 12:06] LABS: ANISOCYTOSIS 0; MACROCYTOSIS 0
[2022-07-11] MEDS: ACETAMINOPHEN 325 MG TABLET (FP) PO PRN (12:31)
[2022-07-11 15:38] VITALS: BP 113/62; PULSE 94; RESP 18; TEMP 98.4
== END 2022-07-11 16:52 | disposition home or self-care (01) | DRG 139 ==
LOC: JER 14:54 → JERBED 21:30 → J5S 07-09 01:59 → OBSVTOIN 07-09 14:04
PROVIDERS: ADMIT Internal Medicine; ATTEND Internal Medicine
DX: J18.9 Pneumonia, unspecified organism (principal); I10 Essential (primary) hypertension; K52.9 Noninfective gastroenteritis and colitis, unspecified; K59.00 Constipation, unspecified; K21.9 Gastro-esophageal reflux disease without esophagitis; F41.8 Other specified anxiety disorders; E78.5 Hyperlipidemia, unspecified
CPT/HCPCS: 0241U-QW; 36415; 71045-TC-FY; 71275-TC; 74177-TC; 80048; 80053; 80307; 81003; 82962; 83605; 83690; 83735; 84100; 84439; 84443; 84479; 84484; 84703; 85025; 85027; 85379; 86850; 86900; 86901; 87070; 87086; 87186; 87205; 87899; 93005; 93010; 93970-TC; 99285-25; G0378; Q9967

== ENCOUNTER 2023-02-22 08:43 | Emergency (ER) | payer OTHER ==
[2023-02-22 09:08] VITALS: RESP 16; TEMP 98; BMI 22.3
[2023-02-22] MEDS ORDERED: ACETAMINOPHEN 1000 MG/100 ML BAG IVPB ONE (10:02)
[2023-02-22] MEDS ORDERED: ONDANSETRON 4 MG/2 ML VIAL IVPUSH ONE (10:02)
[2023-02-22] MEDS ORDERED: SODIUM CHLORIDE 0.9% 500 ML INFUS.BAG IV ONE (10:02)
[2023-02-22] MEDS ORDERED: FAMOTIDINE 20 MG/50 ML IVPB 20 MG/50 ML MG IVPB ONE ×2 (10:02→10:06)
[2023-02-22] MEDS ORDERED: ONDANSETRON 4 MG/2 ML VIAL ONE (10:06)
[2023-02-22] MEDS ORDERED: ACETAMINOPHEN INJECTION 100 ML IVPB ONE (10:06)
[2023-02-22] MEDS ORDERED: methaDONE HCL 10 MG TABLET PO ONE (10:58)
[2023-02-22] MEDS ORDERED: methaDONE HCL 40 MG DISPERSABLE TABLET ONE (11:00)
[2023-02-22 11:01] LABS: BASO % 0.7 % (0-2.0); HEMATOCRIT 47.9 % (32.4-45.2); HEMOGLOBIN 16.4 GM/dL (10.7-15.3); LYMPH % 21.6 % (8-40); MCH 30.4 pg (25.7-33.7); MCHC 34.1 g/dl (32.0-36.0); MEAN CELL VOLUME 89.1 fl (80-96); MEAN PLT VOLUME 8.9 fl (7.5-11.1); MONO % 2.2 % (3.8-10.2); NEUT % 75.5 % (42.8-82.8); PLATELET COUNT 272 10^3/uL (134-434); RBC 5.38 M/mm3 (3.60-5.2); WHITE BLOOD COUNT 8.2 K/mm3 (4.0-10.0)
[2023-02-22 11:22] LABS: POTASSIUM 3.9 mmol/L (3.5-5.1)
[2023-02-22 11:24] LABS: ALBUMIN 4.6 g/dl (3.4-5.0); BLOOD UREA NITROGEN 6.1 mg/dL (7-18); CALCIUM 10.5 mg/dL (8.5-10.1)
[2023-02-22 11:25] LABS: MAGNESIUM 1.9 mg/dL (1.8-2.4)
[2023-02-22 11:27] LABS: CREATININE 0.8 mg/dL (0.55-1.3)
[2023-02-22 11:29] LABS: BILIRUBIN,TOTAL 0.6 mg/dL (0.2-1); TOT PROT 9.6 g/dl (6.4-8.2)
[2023-02-22] MEDS ORDERED: amLODIPine BESYLATE 5 MG TABLET (FP) PO ONE (12:17)
[2023-02-22] MEDS ORDERED: LOSARTAN POTASSIUM 25 MG TABLET PO ONE (12:17)
[2023-02-22] MEDS ORDERED: amLODIPine BESYLATE 5 MG TABLET (FP) ONE (12:19)
[2023-02-22] MEDS ORDERED: LOSARTAN POTASSIUM 25 MG TABLET ONE (12:20)
[2023-02-22] MEDS ORDERED: cloNIDine HCL 0.1 MG TABLET PO ONE (13:13)
[2023-02-22] MEDS ORDERED: cloNIDine HCL 0.1 MG TABLET ONE (13:40)
[2023-02-22] MEDS ORDERED: DICYCLOMINE HCL 20 MG TABLET PO ONE (14:28)
[2023-02-22] MEDS ORDERED: DICYCLOMINE HCL 10 MG CAPSULE ONE (14:42)
[2023-02-22 15:12] VITALS: BP 190/111; PULSE 99
== END 2023-02-22 15:31 | disposition home or self-care (01) ==
LOC: JER 08:43
DX: R11.2 Nausea with vomiting, unspecified (principal); R10.9 Unspecified abdominal pain; R45.1 Restlessness and agitation
CPT/HCPCS: 36415; 80053; 83690; 83735; 85025; 93005; 93010; 99284-25

== ENCOUNTER 2023-04-03 09:51 | Emergency (ER) | payer OTHER ==
[2023-04-03] MEDS ORDERED: ACETAMINOPHEN 1000 MG/100 ML BAG IVPB ONE (10:21)
[2023-04-03 10:22] VITALS: PULSE 105; RESP 18; BMI 23.1
[2023-04-03] MEDS ORDERED: methylPREDNISolone NA SUCC 40 MG/1 ML VIAL IVPB ONE (10:23)
[2023-04-03] MEDS ORDERED: ACETAMINOPHEN INJECTION 100 ML IVPB ONE (10:43)
[2023-04-03] MEDS ORDERED: methylPREDNISolone NA SUCC 125 MG/2 ML VIAL ONE (10:44)
[2023-04-03] MEDS: ALBUTEROL SO4 2.5/IPRATROPIUM 0.5 INH SOL 3 ML VIAL.NEB. NEB SCH ×3 (10:53→11:29)
[2023-04-03 11:17] LABS: EOS % 0.3 % (0-4.5); HEMATOCRIT 40.8 % (32.4-45.2); HEMOGLOBIN 13.3 GM/dL (10.7-15.3); MCH 29.9 pg (25.7-33.7); MCHC 32.7 g/dl (32.0-36.0); MEAN CELL VOLUME 91.5 fl (80-96); MEAN PLT VOLUME 8.3 fl (7.5-11.1); MONO % 15.9 % (3.8-10.2); NEUT % 58.8 % (42.8-82.8); PLATELET COUNT 214 10^3/uL (134-434); RBC 4.46 M/mm3 (3.60-5.2); RDW 13.9 % (11.6-15.6); WHITE BLOOD COUNT 6.1 K/mm3 (4.0-10.0)
[2023-04-03 11:44] LABS: ALBUMIN 3.8 g/dl (3.4-5.0); BLOOD UREA NITROGEN 6.3 mg/dL (7-18); CALCIUM 9.7 mg/dL (8.5-10.1); MAGNESIUM 2.2 mg/dL (1.8-2.4)
[2023-04-03 11:47] LABS: CREATININE 0.7 mg/dL (0.55-1.3)
[2023-04-03 11:49] LABS: BILIRUBIN,TOTAL 0.2 mg/dL (0.2-1); TOT PROT 7.7 g/dl (6.4-8.2)
[2023-04-03 12:34] VITALS: BP 144/80; TEMP 98.7
== END 2023-04-03 12:47 | disposition home or self-care (01) ==
LOC: JER 09:51
PROC: 3E033NZ Introduction of Analgesics, Hypnotics, Sedatives into Peripheral Vein, Percutaneous Approach (ICD-10-PCS; principal; 2023-04-03)
PROC: 3E033GC Introduction of Other Therapeutic Substance into Peripheral Vein, Percutaneous Approach (ICD-10-PCS; 2023-04-03)
PROC: 3E0F7GC Introduction of Other Therapeutic Substance into Respiratory Tract, Via Natural or Artificial Opening (ICD-10-PCS; 2023-04-03)
DX: R07.89 Other chest pain (principal); J10.1 Influenza due to other identified influenza virus with other respiratory manifestations; R05.1 Acute cough; M54.9 Dorsalgia, unspecified; R06.02 Shortness of breath; Z20.822 Contact with and (suspected) exposure to COVID-19
CPT/HCPCS: 0241U-QW; 36415; 71046-TC-FY; 80053; 83735; 84484; 85025; 93005; 93010; 99285-25

== ENCOUNTER 2023-11-16 08:36 | Emergency (ER) | payer OTHER ==
[2023-11-16 08:46] VITALS: BP 189/90; PULSE 56; RESP 19; TEMP 97.6; BMI 25.4
[2023-11-16] MEDS ORDERED: FAMOTIDINE 20 MG TABLET ONE (10:25)
[2023-11-16] MEDS ORDERED: MAG HYDROX/AL HYDROX/SIMETH 30 ML UNIT-DOSE CUP ONE (10:26)
[2023-11-16] MEDS ORDERED: ONDANSETRON *ODT* 4 MG TABLET ONE (10:26)
[2023-11-16 10:28] LABS: BASO % 0.6 % (0-2.0); EOS % 0.4 % (0-4.5); HEMATOCRIT 47.2 % (32.4-45.2); HEMOGLOBIN 15.7 GM/dL (10.7-15.3); LYMPH % 23.8 % (8-40); MCH 30.3 pg (25.7-33.7); MCHC 33.2 g/dl (32.0-36.0); MEAN CELL VOLUME 91.4 fl (80-96); MONO % 3.6 % (3.8-10.2); NEUT % 71.6 % (42.8-82.8); PLATELET COUNT 230 10^3/uL (134-434); RBC 5.16 M/mm3 (3.60-5.2); RDW 14.9 % (11.6-15.6); WHITE BLOOD COUNT 10.5 K/mm3 (4.0-10.0)
[2023-11-16] MEDS: FAMOTIDINE 20 MG TABLET PO ONE (10:34)
[2023-11-16] MEDS: MAG HYDROX/AL HYDROX/SIMETH -MYLANTA- ORAL SUSPENSION PO ONE (10:34)
[2023-11-16] MEDS: ONDANSETRON *ODT* 4 MG TABLET SL ONE (10:34)
[2023-11-16 11:00] LABS: POTASSIUM 5.3 mmol/L (3.5-5.1)
[2023-11-16 11:02] LABS: CALCIUM 9.9 mg/dL (8.5-10.1)
[2023-11-16 11:03] LABS: BLOOD UREA NITROGEN 6.9 mg/dL (7-18)
[2023-11-16 11:06] LABS: CREATININE 0.7 mg/dL (0.55-1.3)
[2023-11-16 11:07] LABS: BILIRUBIN,TOTAL 0.5 mg/dL (0.2-1); TOT PROT 8.5 g/dl (6.4-8.2)
[2023-11-16] MEDS ORDERED: HALOPERIDOL LACTATE 5 MG/ML ONE (11:26)
[2023-11-16] MEDS: HALOPERIDOL DECANOATE 100 MG/ML IM ONE (11:32)
[2023-11-16] MEDS ORDERED: methaDONE HCL 10 MG TABLET ONE (13:04)
[2023-11-16] MEDS: methaDONE HCL 10 MG TABLET PO ONE (13:08)
== END 2023-11-16 13:09 | disposition home or self-care (01) ==
LOC: JER 08:36
PROC: 3E023GC Introduction of Other Therapeutic Substance into Muscle, Percutaneous Approach (ICD-10-PCS; principal; 2023-11-16)
DX: R10.84 Generalized abdominal pain (principal); R11.10 Vomiting, unspecified
CPT/HCPCS: 36415; 80053; 83690; 84484; 85025; 93005; 93010; 99284-25; Q0162